=== PATIENT | female | born 1950 | race Caucasian/White ===

== ENCOUNTER → 2018-03-07 | Day surgery (SDC) | payer OTHER | END | disposition home or self-care (01) | LOC: ADM 03-01 15:00 → AMB-ENDOS 08:04 | DX: D12.0 Benign neoplasm of cecum (principal) ==

== ENCOUNTER 2019-06-19 08:30 | Day surgery (SDC) | payer OTHER | END 2019-06-19 13:45 | disposition home or self-care (01) | LOC: AMB-ENDOS 08:30 → ADM 15:15 → AMB-ENDOS 15:15 | DX: D12.4 Benign neoplasm of descending colon (principal); K64.8 Other hemorrhoids ==